=== PATIENT | female | born 1990 | race Caucasian/White ===

== ENCOUNTER 2021-08-14 14:00 | Emergency (ER) | payer OTHER, BC, SELFPAY ==
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
[2021-08-14 14:31] VITALS: BP 120/86; PULSE 80; RESP 18; TEMP 36.6; O2SAT 100
[2021-08-14 14:38] VITALS: BP 120/86; PULSE 80; RESP 18; TEMP 36.6; O2SAT 100
== END 2021-08-14 15:01 | disposition home or self-care (01) ==
PROVIDERS: Emergency Provider Nurse Practitioner; PCP Nurse Practitioner Family
DX: H11.32 Conjunctival hemorrhage, left eye (principal); S05.02XA Injury of conjunctiva and corneal abrasion without foreign body, left eye, initial encounter; W22.8XXA Striking against or struck by other objects, initial encounter; F41.9 Anxiety disorder, unspecified; F32.9 Major depressive disorder, single episode, unspecified
CPT/HCPCS: 99213; G0463